=== PATIENT | female | born 1980 | race Hispanic/Latino ===

== ENCOUNTER 2021-10-01 17:03 | Emergency (ER) | payer SELFPAY ==
[2021-10-01] MEDS ORDERED: EPINEPHRINE/PF 1 MG/ML AMP ONE (17:11)
[2021-10-01] MEDS ORDERED: FAMOTIDINE 20 MG/2 ML VIAL IV ONE (17:11)
[2021-10-01] MEDS ORDERED: DIPHENHYDRAMINE 50 MG/ML VIAL ONE (17:11)
[2021-10-01] MEDS ORDERED: METHYLPREDNISOLONE 125 MG INJ ONE (17:11)
[2021-10-01] MEDS ORDERED: NA CHLORIDE 0.9% 1,000 ML ONE (17:11)
--- NOTE | 2021-10-01 18:42 | ER ---
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 Mouth numbness, rash ll1 with itching, SOB started directly after sting. Coronavirus screen: Vaccine status: Client denies travel out of the [place] in the last 14 days. Ebola Screen: Patient denies travel to an Ebola-affected area in the 21 days before illness onset. Onset: The symptoms/episode began/occurred suddenly. Anaphylaxis evaluation, chest pain. Initial Sepsis Screen: Does the patient meet any 2 criteria? RR > 20 per min. HR > 90 bpm. Does the patient have a suspected source of infection? Yes: Other: allergic reaction. Risk Assessment: Do you want to hurt yourself or someone else? Patient reports no desire to harm self or others. Onset of symptoms was October 01, 2021. 17:11 Method Of Arrival: Ambulatory ll1 17:11 Acuity: EDELMIRA 2 ll1 Triage Assessment: 17:10 General: Appears distressed, uncomfortable, obese, Behavior is cooperative, appropriate bp for age, agitated, anxious, restless. Pain: Complains of pain in left foot. EENT: Oral mucosa is dry. Throat with gag reflex present. Neuro: No deficits noted. Cardiovascular: No deficits noted. Respiratory: Airway is patent Respiratory effort is even, unlabored, Respiratory pattern is symmetrical, tachypnea. GI: No signs and/or symptoms were reported involving the gastrointestinal system. : No signs and/or symptoms were reported regarding the genitourinary system. Derm: Skin temperature is hot Rash noted that is papular. Musculoskeletal: No deficits noted. Historical: - Allergies: 17:10 bee sting; ll1 - PMHx: 17:10 Asthma; Kidney Infections; hepatitis C; ll1 - Immunization history:: Adult Immunizations up to date. - Social history:: Smoking status: unknown. - Family history:: not pertinent. - Hospitalizations: : No recent hospitalization is reported. Screenin:10 Abuse screen: Denies threats or abuse. Denies injuries from another. Nutritional bp screening: No deficits noted. Tuberculosis screening: No symptoms or risk factors identified. VAN Screening: Arm Drift:. Fall Risk None identified. Assessment: 17:10 General: SEE TRIAGE NOTE. bp 17:10 Respiratory: Airway is patent Respiratory effort is even, Breath sounds with wheezes bp bilaterally. 18:00 Reassessment: Patient and/or family updated on plan of care and expected duration. Pain bp level reassessed. Patient is alert, oriented x 3, equal unlabored respirations, skin warm/dry/pink. Patient states feeling better. Patient states symptoms have improved. 18:53 Reassessment: PT D/C HOME AMBULATORY WITH FAMILY, DX WITH ANAPHYLACTIC REACTION. bp Vital Signs: 17:11 BP 139 / 114; Pulse 158; Resp 24; Temp 98.0; Pulse Ox 92% on R/A; Weight 68.04 kg; ll1 Height 5 ft. 1 in. (154.94 cm); Pain 9/10; 18:00 BP 95 / 58; Pulse 88; Resp 19; Pulse Ox 100% ; bp 18:41 BP 97 / 65; rn 18:53 BP 97 / 65; Pulse 90; Resp 18; Pulse Ox 100% ; bp 17:11 Body Mass Index 28.34 (68.04 kg, 154.94 cm) ll1 ED Course: 17:04 Patient arrived in ED. am2 17:07 Theodore Alcaraz MD is Attending Physician. rn 17:10 Arm band placed on Patient placed in an exam room, on a stretcher. ll1 17:10 Patient has correct armband on for positive identification. Bed in low position. Call bp light in reach. Side rails up X2. 17:10 Inserted saline lock: 22 gauge in right antecubital area, using aseptic technique. bp Blood collected. 17:13 Triage completed. ll1 17:32 Wali Carlos, YVONNE is Primary Nurse. bp 18:54 No provider procedures requiring assistance completed. IV discontinued, intact, bp bleeding controlled, No redness/swelling at site. Pressure dressing applied. Administered Medications: 17:12 Drug: SOLU-Medrol (methylPrednisoLONE) 125 mg Route: IVP; Site: right forearm; ss 18:55 Follow up: Response: Marked relief of symptoms bp 17:14 Drug: Benadryl (diphenhydrAMINE) 50 mg Route: IVP; Site: right forearm; ss 18:55 Follow up: Response: Marked relief of symptoms bp 17:15 Drug: NS 0.9% 1000 ml Route: IV; Rate: 1000 ml; Site: right forearm; ss 18:55 Follow up: IV Status: Completed infusion; IV Intake: 1000ml bp 17:15 Drug: Pepcid (famotidine) 20 mg Route: IVP; Site: right forearm; ss 18:55 Follow up: Response: Marked relief of symptoms bp 17:18 Drug: EPINEPHrine 1mg/mL 1:1,000 0.3 ml Route: Sub-Q; Site: right upper arm; ss 18:55 Follow up: Response: Marked relief of symptoms bp 18:41 Not Given (Duplicate Order): NS 0.9% 1000 ml IV at 1000 ml once manager government: 18:55 IV: 1000ml; Total: 1000ml. bp Outcome: 18:41 Discharge ordered by MD. rn 18:54 Discharged to home ambulatory, with family. bp 18:54 Condition: stable 18:54 Discharge instructions given to patient, Instructed on discharge instructions, follow up and referral plans. medication usage, Demonstrated understanding of instructions, follow-up care, medications, Prescriptions given X 2. 18:56 Patient left the ED. bp Signatures: Theodore Alcaraz MD MD rn Smirch, Shelby, RN RN ss Moreno, Amanda am2 Peltier, Brian, RN RN Peggy Barry RN RN ll1
--- NOTE | 2021-10-01 18:42 | EDPHYS ---
Physician Documentation [facility] Name: Raya Walsh Age: 41 yrs Sex: Female : 1980 Arrival Date: 10/01/2021 Time: 17:04 Bed 2 Private MD: ED Physician Theodore Alcaraz HPI: 10/01 17:12 This 41 yrs old Female presents to ER via Unassigned with complaints of rn Allergic Reaction, Breathing Difficulty. 17:12 The patient presents with itching, rash, shortness of breath. Onset: The rn symptoms/episode began/occurred just prior to arrival. Associated signs and symptoms: Pertinent positives: hives, rash, shortness of breath, Pertinent negatives: fever. Possible causes: bees. At home the patient or guardian has treated the symptoms with nothing. Severity of symptoms: At their worst the symptoms were severe in the emergency department the symptoms are unchanged. The patient has experienced a previous episode. The patient has not recently seen a physician. Patient reports having allergic reaction to bee stings. Significant other removed stinger from foot. Reports shortness of breath/hives/itching. No oral swelling. States has had an allergic reaction to bees before as a child.. Historical: - Allergies: 17:10 bee sting; ll1 - PMHx: 17:10 Asthma; Kidney Infections; hepatitis C; ll1 - Immunization history:: Adult Immunizations up to date. - Social history:: Smoking status: unknown. - Family history:: not pertinent. - Hospitalizations: : No recent hospitalization is reported. ROS: 17:13 Constitutional: Negative for fever, chills, and weight loss, Eyes: Negative for injury, rn pain, redness, and discharge, ENT: Negative for injury, pain, and discharge, Neck: Negative for injury, pain, and swelling, Cardiovascular: Negative for chest pain, palpitations, and edema, Respiratory: Positive for shortness of breath Abdomen/GI: Negative for abdominal pain, nausea, vomiting, diarrhea, and constipation, Back: Negative for injury and pain, : Negative for injury, bleeding, discharge, and swelling, MS/Extremity: Negative for injury and deformity, Skin: Positive for hives and itching Neuro: Negative for headache, weakness, numbness, tingling, and seizure. Exam: 17:13 Constitutional: This is a well developed, well nourished patient who is awake, alert, rn hyperventilating but chooses to walk to room without wheelchair. Head/Face: Normocephalic, atraumatic. Eyes: Periorbital areas with no swelling, redness, or edema. ENT: No oral swelling, moist mucous membranes, no stridor Cardiovascular: Tachycardic, regular. No pulse deficits Respiratory: Mild tachypnea, able to speak full sentences Abdomen/GI: Soft, nontender Skin: Diffuse urticaria, no embedded stingers identified MS/ Extremity: Pulses equal, no cyanosis. Neurovascular intact. Full, normal range of motion. Equal circumference. Neuro: Awake and alert, GCS 15 Vital Signs: 17:11 BP 139 / 114; Pulse 158; Resp 24; Temp 98.0; Pulse Ox 92% on R/A; Weight 68.04 kg; ll1 Height 5 ft. 1 in. (154.94 cm); Pain 9/10; 18:00 BP 95 / 58; Pulse 88; Resp 19; Pulse Ox 100% ; bp 18:41 BP 97 / 65; rn 18:53 BP 97 / 65; Pulse 90; Resp 18; Pulse Ox 100% ; bp 17:11 Body Mass Index 28.34 (68.04 kg, 154.94 cm) ll1 MDM: 17:07 Patient medically screened. rn 17:54 ED course: Pt markedly improved, will continue to monitor and anticipate DC home with rn epipen and steroids. . 18:38 Differential diagnosis: anaphylaxis, urticaria. Data reviewed: vital signs, nurses rn notes, and as a result, I will discharge patient. 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 Interpretation: normal. Counseling: I had a detailed discussion with the patient and/or guardian regarding: the historical points, exam findings, and any diagnostic results supporting the discharge/admit diagnosis, the need for outpatient follow up, to return to the emergency department if symptoms worsen or persist or if there are any questions or concerns that arise at home. Response to treatment: the patient's symptoms have markedly improved after treatment. 18:41 ED course: Pt requesting to go home, states asymptomatic now. . rn 11/16 17:10 Order name: IV Start; Complete Time: 17:18 rn Administered Medications: 17:12 Drug: SOLU-Medrol (methylPrednisoLONE) 125 mg Route: IVP; Site: right forearm; ss 18:55 Follow up: Response: Marked relief of symptoms bp 17:14 Drug: Benadryl (diphenhydrAMINE) 50 mg Route: IVP; Site: right forearm; ss 18:55 Follow up: Response: Marked relief of symptoms bp 17:15 Drug: NS 0.9% 1000 ml Route: IV; Rate: 1000 ml; Site: right forearm; ss 18:55 Follow up: IV Status: Completed infusion; IV Intake: 1000ml bp 17:15 Drug: Pepcid (famotidine) 20 mg Route: IVP; Site: right forearm; ss 18:55 Follow up: Response: Marked relief of symptoms bp 17:18 Drug: EPINEPHrine 1mg/mL 1:1,000 0.3 ml Route: Sub-Q; Site: right upper arm; ss 18:55 Follow up: Response: Marked relief of symptoms bp 18:41 Not Given (Duplicate Order): NS 0.9% 1000 ml IV at 1000 ml once rn Disposition Summary: 10/01/21 18:41 Discharge Ordered Location: Home rn Problem: new rn Symptoms: have improved rn Condition: Stable rn Diagnosis - Toxic effect of venom of bees, undetermined, initial encounter - Anaphylactic rn reaction Followup: rn - With: Private Physician - When: As needed - Reason: Recheck today's complaints, Re-evaluation by your physician Discharge Instructions: - Discharge Summary Sheet rn - Anaphylactic Reaction, Adult rn - Bee, Wasp, or Hornet Sting, Adult rn Forms: - Medication Reconciliation Form rn - Thank You Letter rn - Antibiotic internal control manager - Prescription Opioid Use rn Prescriptions: - epinephrine 0.3 mg/0.3 mL Injection auto-injector - inject 0.3 milliliter by INTRAMUSCULAR route one time As needed as needed for rn anaphylaxis; 1 packet; Refills: 0, Product Selection Permitted - Prednisone 20 mg Oral Tablet - take 3 tablets by ORAL route once daily for 5 days; 15 tablet; Refills: 0, rn Product Selection Permitted Signatures: Theodore Alcaraz MD MD rn Smirch, Shelby, RN RN ss Peggy Perkins RN RN 1 Wali Carlos RN bp
[2021-10-01 20:19] VITALS: TEMP 98
[2021-10-01 20:20] VITALS: O2SAT 100
[2021-10-01 20:21] VITALS: BP 97/65
== END 2021-10-01 18:56 | disposition home or self-care (01) ==
LOC: ER 17:03
DX: T63.441A Toxic effect of venom of bees, accidental (unintentional), initial encounter (principal); R21 Rash and other nonspecific skin eruption; Z91.030 Bee allergy status
CPT/HCPCS: 96361; 96372; 96374; 96375; 99284; J0171; J1200; J2930; J7030

== ENCOUNTER 2024-10-17 11:18 | Emergency (ER) | payer OTHER, SELFPAY ==
[2024-10-17] MEDS ORDERED: NA CHLORIDE 0.9% 500 ML ONE (12:07)
[2024-10-17] MEDS ORDERED: PANTOPRAZOLE 40 MG INJ ONE (12:07)
[2024-10-17] MEDS ORDERED: ONDANSETRON 4 MG/2 ML VIAL ONE (12:07)
[2024-10-17 12:19] LABS: Specific Gravity 1.023 (1.005-1.030)
[2024-10-17 12:20] LABS: Absolute Eosinophils 0.6 K/uL (0-0.5); Absolute Lymphocytes (CBC) 1.1 K/uL (0.7-4.9); Absolute Monocytes 0.5 K/uL (0.1-1.3); Absolute Neutrophil 5.3 K/uL (1.8-8.0); Basophils % 0.4 % (0-1.3); Eosinophils % 7.4 % (0-4.4); Hematocrit 43.3 % (36.0-45.0); Hemoglobin 14.5 g/dL (12.0-15.0); Lymphocytes % 14.5 % (15.3-44.8); MCH 30.5 pg (27.0-35.0); MCHC 33.4 g/dL (32.0-36.0); MCV 91.1 fL (80-100); MPV 8.3 fL (7.6-11.3); Monocytes % 7.1 % (3.3-12.3); Neutrophils % 70.6 % (41.7-73.7); Platelets 317 thou/uL (152-406); RBC Red Blood Cell Count 4.75 M/uL (3.86-4.86); Red Cell Distribution Width 13.9 % (12.1-15.2)
[2024-10-17] MEDS ORDERED: MORPHINE 4 MG/ML SYR ONE (12:20)
[2024-10-17 12:21] LABS: Specific Gravity 1.023 (1.005-1.030); Sqamous Epithelial <5 /HPF (None Seen); Urine Bacteria None Seen /HPF (<20); Urine Bilirubin NEGATIVE (Negative); Urine Blood 2+ (Negative); Urine Clarity Clear (Clear); Urine Color Light-Yellow (Yellow); Urine Culture Reflex Order NOT NEEDED; Urine Glucose NEGATIVE (Negative); Urine Ketones TRACE (Negative); Urine Microscopic Reflex YN ORDER UMIC; Urine Mucus Slight /HPF (None Seen); Urine Nitrite NEGATIVE (Negative); Urine Protein TRACE (Negative); Urine Urobilinogen Normal (Normal); Urine WBC <5 /HPF (<5)
[2024-10-17 12:38] LABS: Albumin 3.2 g/dL (3.4-5.0); Albumin/Globulin Ratio 0.7 (1.1-1.8); Anion Gap 9.5 mEq/L (5.0-15.0); Bilirubin Total 0.5 mg/dL (0.2-1.0); Globulin 4.7 g/dL (2.3-3.5); Potassium 4.5 mEq/L (3.5-5.1); Protein, Total 7.9 g/dL (6.4-8.2)
--- NOTE | 2024-10-17 14:04 | RAD REPORT ---
EXAMINATION: CT Abdomen Pelvis W Contrast CLINICAL INDICATION: Female, 44 years old. ABD PAIN TECHNIQUE: CT abdomen and pelvis was performed, after the administration of IV contrast, [facility]. Axial, sagittal and coronal reconstructions were obtained. One or more of the following dose reduction techniques were used: Automated exposure control, adjustment of the mA and k V according to patient size, and iterative reconstruction. Unless otherwise specified, incidental findings do not require dedicated imaging follow-up. COMPARISON: 12/09/2017 FINDINGS: LOWER CHEST: The visualized lung bases are clear. LIVER: Normal in size and contour. No focal lesion. BILIARY SYSTEM: No suspicious abnormalities. SPLEEN: Normal size. No focal lesion. PANCREAS: No mass, ductal dilation, or harman-pancreatic fluid. ADRENALS: Normal; no mass. KIDNEYS: Normal size and contour. No hydronephrosis. URINARY BLADDER: Unremarkable. GASTROINTESTINAL TRACT: No evidence of free air, significant intra-abdominal free fluid, bowel obstru ction or abscess. APPENDIX: Appendix not visualized, but no inflammatory changes in region of appendix. LYMPH NODES: No lymphadenopathy. MUSCULOSKELETAL: No acute or suspicious osseous abnormality. ADDITIONAL FINDINGS: None. IMPRESSION: No acute or concerning abnormalities seen in the abdomen or pelvis.
--- NOTE | 2024-10-17 14:09 | EDPHYS ---
Physician Documentation [facility] Name: Raya Walsh Age: 44 yrs Sex: Female : 1980 Arrival Date: 10/17/2024 Time: 11:18 Bed 23 Private MD: ED Physician Jose Juan Drummond HPI: 10/17 11:45 This 44 yrs old Female presents to ER via Unassigned with complaints of ec2 Abdominal Pain. 11:45 Patient arrives today for evaluation of upper abdominal pain. Patient reports that she ec2 been experiencing upper abdominal pains for the past 2 days. Patient reports that she has been having some nausea. No vomiting, no diarrhea. Reports no urinary complaints. Reports history of hepatitis C, reports that this was previously treated. Reports regular alcohol use every other day. Reports that the pain was worse last night and into this morning.. 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 - Infectious Disease History:: Denies. - Social history:: Smoking status: unknown. ROS: 11:45 Constitutional: as per hpi ec2 Exam: 11:45 Constitutional: GEN: NAD Head: atraumatic Eyes: EOMI Ears: External ears are ec2 normal. CV: regular rate LUNGS: no respiratory distress ABD: non-distended, tender in the epigastric, not guarding, not rigid SKIN: no evidence of rashes MSK: no evidence of trauma Vital Signs: 11:46 BP 135 / 67; Pulse 91; Resp 18; Temp 97.2; Pulse Ox 98% on R/A; Pain 8/10; iw 12:45 Pain 2/10; me1 12:45 BP 109 / 77; Pulse 80; Resp 16; Pulse Ox 99% ; me1 14:00 BP 114 / 69; Pulse 79; Resp 16; Temp 98.4; Pulse Ox 99% ; me1 11:46 Pain Scale: Adult iw 12:45 Pain Scale: Adult me1 MDM: 11:44 Medical Screening Exam initiated ec2 11:46 Data reviewed: vital signs, nurses notes. ED course: Patient arrives today for upper ec2 abdominal pain. Examination is remarkable for well-appearing nontoxic individual with symptoms epigastrium. Will obtain lab work, urine studies, CT imaging. Differential diagnosis include process such as gastritis, ulcer, liver pathology.. 14:08 ED course: On reassessment patient with improvement in symptoms. Will discharge home ec2 and have the patient follow-up PCP. Return precautions given. Suspect gastritis, will start the patient on acid sanchez.. 10/17 11:45 Order name: CBC with Diff; Complete Time: 12:23 ec2 10/17 11:45 Order name: CMP; Complete Time: 12:44 ec2 10/17 11:45 Order name: Lipase; Complete Time: 12:44 ec2 10/17 11:45 Order name: Urinalysis w/ reflexes; Complete Time: 12:23 ec2 10/17 12:03 Order name: Test, Urine; Complete Time: 12:23 iw 10/17 11:45 Order name: CT Abd/Pelvis - IV Contrast Only; Complete Time: 14:06 ec2 10/17 11:45 Order name: IV Saline Lock; Complete Time: 12:24 ec2 10/17 11:45 Order name: Labs collected and sent; Complete Time: 12:24 ec2 10/17 11:45 Order name: NPO; Complete Time: 12:24 ec2 Administered Medications: 12:25 Drug: Ondansetron IVP 4 mg IVP once; over 2 minutes Route: IVP; Site: right antecubital;me1 12:45 Follow up: Response: No adverse reaction; Nausea is decreased me1 12:25 Drug: NS 0.9% IV 500 ml 500 ml IV at 1 bolus once; to be given as a bolus over 30 me1 minutes Volume: 500 ml; Route: IV; Rate: 1 bolus; Site: right antecubital; 14:20 Follow up: Response: No adverse reaction; IV Status: Completed infusion; IV Intake: me1 500ml 12:25 Drug: Pantoprazole IVP 80 mg IVP once Route: IVP; Site: right antecubital; me1 12:44 Follow up: Response: No adverse reaction me1 12:25 Drug: morphine IVP or IV 4 mg IVP once over 4 mins Route: IVP; Infused Over: 4 mins; me1 Site: right antecubital; 12:45 Follow up: Pain 2/10 Adult; Response: No adverse reaction; Pain is decreased me1 Disposition Summary: 10/17/24 14:09 Discharge Ordered Notes: Location: Home ec2 Condition: Stable ec2 Diagnosis - Acute gastritis without bleeding ec2 Followup: ec2 - With: Private Physician - When: - Reason: Re-evaluation by your physician Discharge Instructions: - Discharge Summary Sheet ec2 - Gastritis, Adult ec2 Forms: - Medication Reconciliation Form ec2 - Antibiotic Education ec2 - Prescription Opioid Use ec2 - Patient Portal Instructions ec2 - Leadership Thank You Letter ec2 Prescriptions: - Protonix 40 mg Oral Tablet - take 1 tablet ORAL route once daily; 30 tablet; Refills: 0, Product Selection ec2 Permitted Signatures: Dispatcher [employer] Aleshia Clinton RN RN iw Orquidea Best RN RN me1 Jose Juan Drummond MD MD ec2 Corrections: (The following items were deleted from the chart) 14:04 11:56 TEST, SERUM+[id number].[id number] ordered. HERON SHELBY
--- NOTE | 2024-10-17 14:09 | ER ---
Nurse's Notes [facility] Name: Raya Walsh Age: 44 yrs Sex: Female : 1980 Arrival Date: 10/17/2024 Time: 11:18 Bed 23 Private MD: Diagnosis: Acute gastritis without bleeding Presentation: 10/17 11:46 Chief complaint: Patient states: upper abd pain, nausea, vomiting, since last night. iw Coronavirus screen: At this time, the client does not indicate any symptoms associated with coronavirus-19. Ebola Screen: No symptoms or risks identified at this time. Initial Sepsis Screen: Does the patient meet any 2 criteria? No. Patient's initial sepsis screen is negative. Does the patient have a suspected source of infection?. Risk Assessment: Do you want to hurt yourself or someone else? Patient reports no desire to harm self or others. Onset of symptoms was October 16, 2024. 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 - Infectious Disease History:: Denies. - Social history:: Smoking status: unknown. Screenin:45 [facility] ED Fall Risk Assessment (Adult) History of falling in the last 3 months, me1 including since admission No falls in past 3 months (0 pts) Confusion or Disorientation No (0 pts) Intoxicated or Sedated No (0 pts) Impaired Gait No (0 pts) Mobility Assist Device Used No (0 pt) Altered Elimination No (0 pt) Score/Fall Risk Level 0 - 2 = Low Risk Maintained a safe environment, Provided non-skid footwear, Hourly rounding (assess needs \T\ fall precautionary measures) done. Abuse screen: Denies threats or abuse. Nutritional screening: No deficits noted. Tuberculosis screening: No symptoms or risk factors identified. Assessment: 12:05 General: Appears uncomfortable, ill, well groomed, well developed, well nourished, me1 Behavior is calm, cooperative, appropriate for age, Reports upper abd pain, n/v since last night. Pain: Complains of pain in epigastric area Pain does not radiate. Pain currently is 6 out of 10 on a pain scale. Quality of pain is described as crampy, sharp, Pain began 1 day ago. Is continuous. Neuro: Level of Consciousness is awake, alert, obeys commands, Oriented to person, place, time, situation, Appropriate for age. Cardiovascular: Patient's skin is warm and dry. Respiratory: Airway is patent Respiratory effort is even, unlabored, Respiratory pattern is regular, symmetrical. GI: Abdomen is round non-distended, Bowel sounds present X 4 quads. Abd is soft X 4 quads. : No signs and/or symptoms were reported regarding the genitourinary system. EENT: No signs and/or symptoms were reported regarding the EENT system. Derm: Skin is intact, is healthy with good turgor, Skin is. Musculoskeletal: No signs and/or symptoms reported regarding the musculoskeletal system. Vital Signs: 11:46 BP 135 / 67; Pulse 91; Resp 18; Temp 97.2; Pulse Ox 98% on R/A; Pain 8/10; iw 12:45 Pain 2/10; me1 12:45 BP 109 / 77; Pulse 80; Resp 16; Pulse Ox 99% ; me1 14:00 BP 114 / 69; Pulse 79; Resp 16; Temp 98.4; Pulse Ox 99% ; me1 11:46 Pain Scale: Adult iw 12:45 Pain Scale: Adult me1 ED Course: 11:19 Patient arrived in ED. ra3 11:21 Jose Juan Drummond MD is Attending Physician. ec2 11:47 Triage completed. iw 11:48 Arm band placed on. iw 12:05 Orquidea Best, YVONNE is Primary Nurse. me1 12:25 CMP Sent. me1 12:25 Lipase Sent. me1 12:25 Initial lab(s) drawn, by ak, sent to lab. Urine collected: clean catch specimen, me1 cloudy. Inserted saline lock: 22 gauge in right antecubital area, using aseptic technique. 12:45 Patient has correct armband on for positive identification. Bed in low position. Call me1 light in reach. Side rails up X2. Provided Education on: POC. Verbalized understanding.. Client placed on continuous cardiac and pulse oximetry monitoring. NIBP monitoring applied. Pulse ox on. NIBP on. 12:45 No provider procedures requiring assistance completed. me1 13:04 CT Abd/Pelvis - IV Contrast Only In Process Unspecified. EDMS 14:25 IV discontinued, intact, bleeding controlled, No redness/swelling at site. Pressure me1 dressing applied. Administered Medications: 12:25 Drug: Ondansetron IVP 4 mg IVP once; over 2 minutes Route: IVP; Site: right antecubital;me1 12:45 Follow up: Response: No adverse reaction; Nausea is decreased me1 12:25 Drug: NS 0.9% IV 500 ml 500 ml IV at 1 bolus once; to be given as a bolus over 30 me1 minutes Volume: 500 ml; Route: IV; Rate: 1 bolus; Site: right antecubital; 14:20 Follow up: Response: No adverse reaction; IV Status: Completed infusion; IV Intake: me1 500ml 12:25 Drug: Pantoprazole IVP 80 mg IVP once Route: IVP; Site: right antecubital; me1 12:44 Follow up: Response: No adverse reaction me1 12:25 Drug: morphine IVP or IV 4 mg IVP once over 4 mins Route: IVP; Infused Over: 4 mins; me1 Site: right antecubital; 12:45 Follow up: Pain 2/10 Adult; Response: No adverse reaction; Pain is decreased me1 Medication: 12:45 VIS not applicable for this client. me1 Intake: 14:20 IV: 500ml; Total: 500ml. me1 Outcome: 14:09 Discharge ordered by . ec2 14:25 Discharged to home ambulatory, with significant other, me1 14:25 Condition: stable 14:25 Discharge instructions given to patient, significant other, Instructed on discharge instructions, follow up and referral plans. medication usage, Demonstrated understanding of instructions, follow-up care, medications, Prescriptions given X 1, 14:31 Patient left the ED. me1 Signatures: Dispatcher [employer] EDAleshia Medina RN RN iw Eddleman, Michelle, RN RN me1 Jose Juan Drummond MD MD ec2 Danita Glass ra3
[2024-10-17 15:01] VITALS: O2SAT 99
[2024-10-17 15:03] VITALS: BP 114/69; TEMP 98.4
== END 2024-10-17 14:31 | disposition home or self-care (01) ==
LOC: ER 11:18
DX: K29.00 Acute gastritis without bleeding (principal)
CPT/HCPCS: 96361; 85025; 81001; 36415; 81025; 83690; 80053; 74177; 96375; 96374; 99284; Q9967; J2470; J2405; J7040